=== PATIENT | female | born 1995 | race Two or more races ===

== ENCOUNTER 2024-08-28 17:33 | Emergency (ER) | payer OTHER ==
[~2024-08-28] VITALS: Ht 162.6 cm; Wt 64.4 kg
--- NOTE | 2024-08-28 18:11 | ED.PDOC ---
History of Present Illness HPI Comments 29-year-old female with no reported PMHx presents with a chief complaint of abdominal pain x 1 week with associated nausea, vomiting, and vaginal bleeding. Patient states that she found out on August 26 that she had an ectopic at [facility] and was given "a shot for it". Patient mentions that she now developed vaginal bleeding and the cramping she has been experiencing since before the shot as worsened. Patient mentions that she is a [employer] and lifted heavy last night and thinks that it made it worse. No other symptoms or modifying factors present at this time. 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 Family History Family History: Family hx of DM, Family hx of Cancer Social History Smoker: Non-Smoker Alcohol: Occasionally Drugs: Marijuana Lives In: Home Constitutional: denies: chills, diaphoresis, fatigue, fever, malaise, sweats, weakness, others EENTM: denies: blurred vision, double vision, ear bleeding, ear discharge, ear drainage, ear pain, ear ringing, eye pain, eye redness, hearing loss, mouth pain, mouth swelling, nasal discharge, nose bleeding, nose congestion, nose pain, photophobia, tearing, throat pain, throat swelling, voice changes, others Respiratory: denies: cough, hemoptysis, orthopnea, SOB at rest, shortness of breath, SOB with excertion, stridor, wheezing, others Cardiovascular: denies: chest pain, dizzy spells, diaphoresis, Dyspnea on exertion, edema, irregular heart beat, left arm pain, lightheadedness, palpitations, PND, syncope, others Gastrointestinal: reports: abdominal pain, nausea, vomiting; denies: abdomen distended, blood streaked bowels, constipated, diarrhea, dysphagia, difficulty swallowing, hematemesis, melena, poor appetite, poor fluid intake, rectal bleeding, rectal pain, others Genitourinary: reports: abnormal vagina bleeding, pain, ; denies: burning, dyspareunia, dysuria, flank pain, frequency, hematuria, incontinence, vagina discharge, urgency, others Neurological: denies: dizziness, fainting, headache, left sided numbness, left sided weakness, numbness, paresthesia, pre-existing deficit, right sided numbness, right sided weakness, seizure, speech problems, tingling, tremors, weakness, others Musculoskeletal: denies: back pain, gout, joint pain, joint swelling, muscle pain, muscle stiffness, neck pain, others Integumetry: denies: bruises, change in color, change in hair/nails, dryness, laceration, lesions, lumps, rash, wounds, others Allergic/Immunocompromised: denies: Difficulty Healing, Frequent Infections, Hives, Itching, others Hematologic/Lymphatic: denies: anemia, blood clots, easy bleeding, easy bruising, swollen glands, others Endocrine: denies: excessive hunger, excessive sweating, excessive thirst, excessive urination, flushing, intolerance to cold, intolerance to heat, unexplained weight gain, unexplained weight loss, others Psychiatric: denies: anxiety, bipolar disorder, depression, hopeless, panic disorder, schizophrenia, sleepless, suicidal, others All Other Systems: Reviewed and Negative Physical Exam General Appearance: No Apparent Distress HEENT: Normal ENT Inspection, Pharynx Normal, TMs Normal Neck: Full Range of Motion, Non-Tender, Normal, Normal Inspection Respiratory: Chest Non-Tender, Lungs Clear, No Accessory Muscle Use, No Respiratory Distress, Normal Breath Sounds Cardiovascular: No Edema, No JVD, No Murmur, No Gallop, Normal Peripheral Pul ses, Regular Rate/Rhythm Breast Exam: Deferred Gastrointestinal: No Organomegaly, Non Tender, No Pulsatile Mass, Normal Bowel Sounds, Soft Genitalia: Deferred Pelvic: Deferred Rectal: Deferred Extremities: No calf tenderness, Normal capillary refill, Normal inspection, Normal range of motion, Non-tender, No pedal edema Musculoskeletal : Apperance: Normal Neurologic: Alert, psychiatric assistant II-XII nml as Tested, No Motor Deficits, Normal Affect, Normal Mood, No Sensory Deficits Cerebellar Function: Normal Reflexes: Normal Skin: Dry, Normal Color, Warm Lymphatic: No Adenopathy Was a procedure done? Was a procedure done?: No Differential Dx Considerations may include: Ectopic , complete , threatened X-Ray, Labs, Meds, VS Vital Signs Date Time Temp Pulse Resp B/P (MAP) Pulse Ox O2 Delivery O2 Flow Rate FiO2 3/5/25 18:00 98.4 79 16 126/57 (80) 99 Lab Test 08/28/24 18:27 Range/Units Beta HCG, Quantitative 339.9 H 1.5-4.2 mIU/mL Pelvic ultrasound shows:IMPRESSION: 1. No IUP. 2. Complex structure adjacent to the right ovary measuring 1.8 x 1.7 x 1.9 cm. 3. Beta HCG 339 4. Thick-walled cystic structure in the left ovary measuring 1.6 x 1.4 by 1.8 cm. 5. Consider follow-up study. No acute abnormality detected. Because of the findings in the history of ectopic , we are consulting with the OBGYN. We discussed the findings with the OBGYN. The patient was to return on Monday for a repeat quantitative hCG The patient is to return immediately if the condition worsens significantly The patient was being discharged Images Reviewed?: Images reviewed and evaluated by me Time of 1ST Reevaluation: 18:35 Reevaluation 1ST: Unchanged Patient Education/Counseling: Diagnosis, Treatment, Prognosis, Need For Follow Up Family Education/Counseling: No Family Present Departure 1 Departure Time of Disposition: 20:57 Impression: Primary Impression: Ectopic Qualified Codes: O00.90 - Unspecified ectopic without intrauterine Additional Impression: Pelvic pain Disposition: 01 HOME / SELF CARE / HOMELESS Condition: Fair Discharged With: Self Critical Care Note Critical Care Time?: No Stability Stability form required: No Heart Score Heart Score: Heart Score Response (Comments) Value History N/A 0 EKG N/A 0 Age N/A 0 Risk Factors N/A 0 Troponin N/A 0 Total 0 I personally scribed for RAYMOND ZENG MD ([email or web address]) on 08/28/24 at 18:11. Electronically submitted by Chuck Serrato ([email or web address]). RAYMOND ZENG MD Aug 28, 2024 18:11
--- NOTE | 2024-08-28 20:00 | DVH ---
OB ULTRASOUND <14 WEEKS: HISTORY: HX OF ECTOPIC TECHNIQUE: Multiple real-time grayscale sonographic images of the pelvis with duplex Doppler color f low, spectral and M-mode analysis. TRANSDUCERS: Transabdominal and transvaginal FINDINGS: The uterus measures 8.9 x 6.2 by 5.2 cm there is a 4 mm nabothian cyst in the cervix. Endometrium deidra sures 15.3 mm The cervix not measured Right ovary measures right ovary measures 2.8 x 1.6 x 2.4 cm. Right ovarian volume is 5.4 cc with nor mal Doppler color flow Left ovary measures 3.1 x 1.9 x 2.6 cm. Left ovarian volume is 7.7 cc. There is a 1.6 x 1.4 x 1.8 cm anechoic lesion in the left ovary. with normal Doppler color flow No IUP. IMPRESSION: 1. No IUP. 2. Complex structure adjacent to the right ovary measuring 1.8 x 1.7 x 1.9 cm. 3. Beta HCG 339 4. Thick-walled cystic structure in the left ovary measuring 1.6 x 1.4 by 1.8 cm. 5. Consider follow-up study. No acute abnormality detected.
[2024-08-28 21:06] VITALS: TEMP 99.2
[2024-08-28] MEDS ORDERED: ZOFR4T PO (21:15)
[2024-08-28 21:22] VITALS: BP 116/61; PULSE 68; RESP 16; O2SAT 97
[2024-08-28 22:18] LABS: Urine Bacteria FEW /hpf (None Seen); Urine Blood 3+ /uL (Negative); Urine Clarity Turbid (Clear); Urine Color Yellow (Yellow); Urine Mucus FEW (None Seen); Urine Protein, UAD TRACE (Negative); Urine Specific Gravity 1.028 (1.001-1.035); Urine Squamous Epithelial Cell MOD /hpf (<5); Urine Urobilinogen 2 mg/dL (Negative); Urine WBC 5 /HPF (0-5)
== END 2024-08-28 21:23 | disposition home or self-care (01) ==
LOC: ER 17:33
DX: O00.90 Unspecified ectopic pregnancy without intrauterine pregnancy (principal); O46.90 Antepartum hemorrhage, unspecified, unspecified trimester; R10.2 Pelvic and perineal pain; R11.2 Nausea with vomiting, unspecified; Z3A.00 Weeks of gestation of pregnancy not specified
CPT/HCPCS: 36415; 76801; 76817; 81001; 84702